=== PATIENT | female | born 1940 | race Caucasian/White ===

== ENCOUNTER → 2017-07-27 | Outpatient (CLI) | payer MEDICARE ==
[~2017-07-27] MED LIST: ATEN-1 PO; ATEN-65 PO; ATOR10TA65 PO; CALC-852 PO; CHOL400C PO; DICL100G39 TOP; GABA-1 PO; LOSA50TA72 PO; MAGN400T4 PO; MULT-885 PO; OMEG-11 PO; VALS160T2 PO; [UNRECOGNIZED DRUG - OTHER] PO
[2017-07-27 12:28] LABS: LDL CHOLESTEROL 49 mg/dl
== END ==
LOC: LAB 11:41
PROVIDERS: ATTEND Internal Medicine
DX: I10 Essential (primary) hypertension (principal); E78.00 Pure hypercholesterolemia, unspecified
CPT/HCPCS: 36415; 82040; 82247; 82310; 82374; 82435; 82465; 82565; 82947; 83718; 84075; 84132; 84155; 84295; 84450; 84460; 84478; 84520

== ENCOUNTER → 2017-07-28 | Outpatient (CLI) | payer MEDICARE ==
[~2017-07-28] MED LIST changes: -VALS160T2 PO; +VALS160T7 PO
== END ==
LOC: LAB 14:10
PROVIDERS: ATTEND Internal Medicine
DX: R94.5 Abnormal results of liver function studies (principal)
CPT/HCPCS: 36415; 82728; 83540; 83550; 84466; 87340

== ENCOUNTER → 2017-08-01 | Outpatient (CLI) | payer MEDICARE ==
--- NOTE | 2017-08-01 13:09 | RADIOLOGY IMAGING REPORT ---
FACILITY: [facility] PATIENT NAME: Ngoc Yepez : 1940 MR: [id number] V: [id number] EXAM DATE: ORDERING PHYSICIAN: SUKHDEEP SUAZO TECHNOLOGIST: Location: [facility] Patient: Ngoc Yepez : 1940 Visit/Account:[id number] Date of Sevice: 08/01/2017 Right upper quadrant ultrasound HISTORY: elevated liver enzymes COMPARISON: None. FINDINGS: Gallbladder: Negative.. Bile ducts: There is no biliary ductal dilation with the CBD measuring 5 mm. Liver: Slightly echogenic. Normal size measuring 14.5 cm in length. Pancreas: Negative. Right kidney: Negative. Upper abdominal aorta and IVC: Patent. Ascites: None visualized. Other findings: None significant IMPRESSION: 1. Negative for gallstones or biliary ductal dilatation. 2. Mildly echogenic liver, likely from steatosis. Report Dictated By: Dave Martini MD at 08/01/2017 1:02 PM Report E-Signed By: Dave Martini MD at 08/01/2017 1:06 PM WSN:[email or web address]
== END ==
LOC: US 01:27
PROVIDERS: ATTEND Internal Medicine
DX: R79.89 Other specified abnormal findings of blood chemistry (principal)
CPT/HCPCS: 76705

== ENCOUNTER 2017-10-06 12:24 | Outpatient (RCR) | payer MEDICARE ==
[2017-09-08 14:07] VITALS: BP 150/75
[2017-09-08 15:20] LABS: PLATELET COUNT, AUTOMATED 144 K/uL (150-450)
--- NOTE | 2017-09-10 16:42 | ONCOLOGY CONSULTATION ---
EVENT DATE: September 08, 2017 REFERRING PHYSICIAN Conrad Orr MD REASON FOR CONSULTATION Evaluation and management of iron overload. HEMATOLOGY HISTORY Patient is a 77-year-old female followed by Dr. Orr. 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 She has also ectropion with multiple surgeries in her eyes in the past, with osteoarthritis and hypertension. Patient was found to have high iron studies lately. Her serum iron was 294 which is high, TIBC was low at 249. Serum ferritin was 1000 and transferring was 223. Patient was checked for hepatitis serology which was negative. Patient was sent for further evaluation and management. PAST MEDICAL HISTORY 1. Neuropathy. 2. Ectropion of the eyes. 3. Hypertension. 4. Osteoarthritis. PAST SURGICAL HISTORY 1. In 1982 she had upper and lower blepharoplasty. 2. In 2011 she had left ectropion in August, and right ectropion surgery in December 2011. 3. On October 19, 2013 she had upper and lower blepharoplasty and re-do of ectropion. 4. She had endometrial biopsy, December 17, 2009. 5. Dilatation and curettage January 09, 2010. 6. Breast augmentation mammoplasty on March 01, 1981. 7. Lumbar laminectomy and diskectomy on January 28, 2000. FAMILY HISTORY She has neuropathy in her mother and maternal grandmother. She has a maternal uncle with high iron. SOCIAL HISTORY Patient has had a partner for the last 22 years. She is a retired senior paralegal. She quit smoking 12 years ago after less than one pack a day for over 40 years. She has a glass of wine on a daily basis. Denies any abuse of illicit drugs. CURRENT MEDICATIONS 1. Losartan 50 mg twice daily. 2. Atenolol 50 mg twice daily. ALLERGIES No known drug allergies. REVIEW OF SYSTEMS CONSTITUTIONAL: No appetite or weight change. No fever, chills or sweating. No recent infection. HEENT: Ears: No tinnitus or hearing problem. Nose: She has nasal discharge due to her eye drainage from ectropion. No epistaxis. Throat: No sore throat or mouth ulcers. Eyes: No diplopia or visual changes. RESPIRATORY: She has cough with expectoration also from the ectropion eye drainage. No shortness of breath. No hemoptysis. CARDIOVASCULAR: No chest pain, orthopnea, or paroxysmal nocturnal dyspnea (PND) . No edema. No palpitations. GASTROINTESTINAL: No nausea or vomiting. No diarrhea or constipation. No change in bowel movements. No heartburn or swallowing difficulties. No abdominal pain. No jaundice. No hematemesis, melena or rectal bleeding. GENITOURINARY: No hematuria or dysuria. MUSCULOSKELETAL: No pain in the muscles, joints or bones. NEUROLOGICAL: She has neuropathy in her feet which is thought to be idiopathic. No tingling or numbness in the hands or feet. No headaches or convulsions. HEMATOLOGIC/LYMPHATIC: No bleeding or easy bruising. No weakness or fatigue. No enlarged lymph nodes. SKIN: No skin rash or lumps. PSYCHIATRIC: No anxiety or depression. PHYSICAL EXAMINATION GENERAL: Looks stable. Well-developed, well-nourished, and in no acute distress. VITAL SIGNS: Blood pressure 150/75, pulse 69 per minute, respirations 16 per minute, temperature 96.7, pulse ox 90% on room air. HEENT: Head: Atraumatic. No sinus tenderness to palpation. Eyes: No icterus or conjunctivitis. Mouth and throat: No oral thrush or mucositis. NECK: Supple. No cervical or supraclavicular lymphadenopathy. LUNGS: Clear to auscultation and percussion bilaterally. HEART: Regular rate and rhythm. No gallops, murmurs, clicks or rubs. ABDOMEN: Soft and lax. No tenderness. No hepatosplenomegaly. No masses. EXTREMITIES: No cyanosis, clubbing or edema. LYMPHATICS: No peripheral lymphadenopathy. NEUROLOGICAL: Conscious, alert and oriented times three. No focal motor or sensory deficits. PSYCHIATRIC: Mood and affect appear normal. SKIN: No skin rash, bruise or purpuric eruption. ASSESSMENT 1. Iron overload with serum ferritin 1000 and TIBC low at 249 with high serum iron at 294. Transferrin was 223. Iron overload could be due to hemochromatosis, especially she says her maternal uncle had some sort of high iron. Patient is drinking alcohol on a daily basis, and this even in hemochromatosis carrier where they do not show the disease, they may have iron overload because of that. I am planning to check her CBC, chem panel and iron studies with ferritin, and I am planning also to check the genetic testing for hemochromatosis. Further evaluation and management will depend on the results of those tests. I am planning to see her in a week for further evaluation and management. 2. Idiopathic neuropathy mainly of the feet. 3. Ectropion of the eyes. 4. Hypertension. PLAN 1. CBC. 2. Chem panel. 3. Iron studies with ferritin. 4. Genetics testing for hemochromatosis. 5. Patient to return in one week for further evaluation and management. 6. Patient to contact us for any new concerns or complaints. MARGUERITE
[~2017-10-06] VITALS: Ht 160 cm; Wt 65.0 kg
[2017-10-06 12:39] VITALS: BP 172/77
--- NOTE | 2017-10-07 18:10 | ONCOLOGY FOLLOW UP NOTE ---
EVENT DATE: October 06, 2017 REASON FOR FOLLOWUP Iron overload/H63D heterozygosity. CHIEF COMPLAINT Fatigue, watery eyes. INTERIM HISTORY Ngoc returns to clinic for a follow-up visit today. She was most recently seen by Dr. Chaudhari here in this clinic. She is here for another opinion regarding her iron load. She reports that she has been feeling about the same since our last visit. Her ongoing biggest complaint is for chronic and bothersome eye symptoms, to include tearing. She reports no abdominal pain, changes in bowel habits, shortness of breath, chest pain, or productive cough. She has had no fevers. She has had laboratory studies checked, and she is here to review the results. PAST MEDICAL HISTORY 1. Peripheral neuropathy, as of now idiopathic. 2. History of ectropion of the eyes. 3. Hypertension. 4. Osteoarthritis. PAST SURGICAL HISTORY 1. 1982: Upper and lower blepharoplasty. 2. 2011: Left ectropion in August, and right ectropion surgery in December of 2011. 3. 2013: Upper and lower blepharoplasty and redo of ectropion. 4. 2009: Endometrial biopsy followed by Gurjit in December 2009. 5. 1980: Breast augmentation surgery. 6. 1999: Lumbar laminectomy and diskectomy. CURRENT MEDICATIONS 1. Losartan. 2. Atenolol. SOCIAL HISTORY The patient is a nonsmoker, but does have a history of smoking. She drinks reportedly a glass or two of wine daily. There is no history of illicit drug use. FAMILY HISTORY There is a family history of neuropathy in her mother and maternal grandmother. She also has a maternal uncle with elevated iron levels. ALLERGIES No known drug allergies. VITAL SIGNS Temperature is 97.3, blood pressure 172/77, heart rate is 70, respirations 16, oxygen saturation is 92% on room air. Weight is declined. PHYSICAL EXAMINATION GENERAL: Patient is alert and oriented times three, in no apparent distress sitting in the exam room chair. She is interactive and pleasant. HEENT: Exam reveals tearing and erythema of both eyes. NEUROLOGIC: Exam is grossly nonfocal, and her gait is normal. SKIN: Exam reveals no concerning rash or lesions. EXTREMITIES: Exam reveals no tenderness to palpation or erythema. LABORATORY STUDIES Are reviewed per the [facility] record and outside labs. She is heterozygote for H63D mutation. She has a prior transaminitis, modest leukopenia, modest thrombocytopenia, and macrocytosis. ASSESSMENT AND PLAN Iron overload, daily alcohol use, leukopenia, thrombocytopenia, H63D heterozygosity. I had a good visit with Ngoc today. We spent time reviewing her recent visit with Dr. Chaudhari here in the [facility]. We also moved on to discuss her laboratory results. These are noted above. We discussed the implications of the H63D heterozygosity, and that this tends to be a very common genotype. Usually, this genotype does not lead to clinically significant iron overload. She does seem to drink daily, although she is not particularly clear about how much she is going to be able to quit, upon recommendation that she do so. I have discussed the importance of her abstaining from alcohol entirely, knowing her prior imaging findings showing steatosis, her elevated liver enzymes, and her known iron overload, which could in part be due to her H63D heterozygosity, but also her alcohol intake. We discussed that under usual circumstances with iron overload and no other good reason for it, therapeutic phlebotomy would be instituted. At this point, I am hesitant to have her begin immediately with therapeutic phlebotomy, and I do think it will be her first priority to cut way back on the amount that she is drinking and eventually quit entirely. Hopefully she can do so. I have also asked her to follow up with me in the next two to three months after repeat labs , and hopefully we will see some improvement. The patient had several questions for me today, and I believe I answered all of her questions to her satisfaction. She does understand the implications of ongoing elevated iron, and alcohol intake. I spent a total of 30 minutes of time face to face with the patient today, and 25 minutes of this was spent in direct counseling and coordination of care. MARGUERITE
== END 2017-10-14 08:43 | disposition home or self-care (01) ==
LOC: ONC 12:24
PROVIDERS: ATTEND Internal Medicine Medical Oncology
DX: E83.119 Hemochromatosis, unspecified (principal); R79.89 Other specified abnormal findings of blood chemistry; D72.819 Decreased white blood cell count, unspecified; D69.6 Thrombocytopenia, unspecified; Z87.891 Personal history of nicotine dependence
CPT/HCPCS: 36415; 82728; 83540; 83550; 85025; G0463; 81256; 82040; 82247; 82310; 82374; 82435; 82565; 82947; 84075; 84132; 84155; 84295; 84450; 84460; 84520; 99202; 99212

== ENCOUNTER → 2018-01-23 | Outpatient (CLI) | payer MEDICARE ==
[~2018-01-23] MED LIST changes: +CEPH500C24 PO; -VALS160T7 PO; +VALS160T8 PO
== END ==
LOC: LAB 14:52
PROVIDERS: ATTEND Surgery
DX: C44.622 Squamous cell carcinoma of skin of right upper limb, including shoulder (principal)
CPT/HCPCS: 88305

== ENCOUNTER 2018-03-22 10:55 | Outpatient (RCR) | payer MEDICARE ==
[2017-12-30 13:28] VITALS: BP 119/51
[2017-12-30 13:44] LABS: PLATELET COUNT, AUTOMATED 153 K/uL (150-450)
[2018-01-05 14:01] VITALS: BP 154/75
--- NOTE | 2018-01-05 21:13 | ONCOLOGY FOLLOW UP NOTE ---
EVENT DATE: January 05, 2018 REASON FOR FOLLOWUP Iron overload/H63D heterozygosity. CHIEF COMPLAINT Fatigue, watery eyes. INTERIM HISTORY Ngoc returns to clinic for a follow-up visit today. She reports that in general she has been feeling about the same. She is having a "bad eye day" today. She has had ongoing redness, irritation, and watering of her eyes. She reports no new pain. Her appetite has been fair. She believes her weight has been stable. She denies new abdominal symptoms, and she reports no new urinary symptoms. She reports that she has been drinking very little alcohol, usually only a glass of wine or less per day. She has had follow-up labs drawn, and she is here to review the results. PAST MEDICAL HISTORY 1. Peripheral neuropathy, as of now idiopathic. 2. History of ectropion of the eyes. 3. Hypertension. 4. Osteoarthritis. PAST SURGICAL HISTORY 1. 1982: Upper and lower blepharoplasty. 2. 2011: Left ectropion in August, and right ectropion surgery in December of 2011. 3. 2013: Upper and lower blepharoplasty and redo of ectropion. 4. 2009: Endometrial biopsy followed by [facility] and [facility] in December 2009. 5. 1980: Breast augmentation surgery. 6. 1999: Lumbar laminectomy and diskectomy. CURRENT MEDICATIONS 1. Losartan. 2. Atenolol. SOCIAL HISTORY The patient is a nonsmoker, but does have a history of smoking. She drinks reportedly a glass or two of wine daily. There is no history of illicit drug use. FAMILY HISTORY There is a family history of neuropathy in her mother and maternal grandmother. She also has a maternal uncle with elevated iron levels. ALLERGIES No known drug allergies. REVIEW OF SYSTEMS Otherwise positive for ongoing peripheral neuropathy, but otherwise negative and all systems were reviewed. VITAL SIGNS Temperature is 97.7, blood pressure 154/75, heart rate is 102, respirations 16, oxygen saturation is 93% on room air. PHYSICAL EXAMINATION GENERAL: Patient is alert and oriented times three, in no apparent distress sitting in the exam room chair. HEENT: Exam reveals anicteric sclerae, but injected conjunctivae and lacrimation bilaterally. NEUROLOGIC: Exam is grossly nonfocal, and her gait is normal. EXTREMITIES: Exam reveals some slight edema of the bilateral lower extremities , but no erythema or tenderness to palpation. SKIN: Exam reveals no concerning rash or lesion. LABORATORY STUDIES Reviewed per the [facility] record. ASSESSMENT AND PLAN Iron overload, macrocytosis, transaminitis, hyponatremia. I visited with Ngoc today in followup about her laboratory abnormalities. She again has hyponatremia, her liver function tests remain abnormal, and her ferritin is actually higher than it was before, now over 1999. She remains with a modest macrocytosis, but quantitatively, her white count, hematocrit, and platelet count are relatively normal. We discussed ongoing concern for alcohol intake. The patient insists that she is drinking no more than a half glass or one glass of wine per day. I have taken her at her word today. We discussed again her hemochromatosis testing, and that the H63D mutation is uncommonly associated with clinically significant iron overload. At this point, she does have the possibility of reserve in her hematocrit to consider therapeutic phlebotomy. My concern, however, is that if we move forward with therapeutic phlebotomy with aggressive parameters, she potentially will become more anemic, and we will have less of a chance of improving her iron status if alcohol intake continues, even modestly. We discussed this. We also touched on the possibility of iron chelation, but certainly, GI toxicity is a concern. I have entered orders for a therapeutic phlebotomy (one-half unit to be performed every two to three weeks as needed for a hematocrit greater than 40%). There is a chance that she may not meet these parameters. I will plan to see her back in the next few months after repeat labs. MARGUERITE
[2018-01-26 11:35] LABS: PLATELET COUNT, AUTOMATED 156 K/uL (150-450)
[2018-01-26 16:13] VITALS: BP 110/69
[2018-03-09 10:59] VITALS: BP 142/65
[2018-03-09 11:17] LABS: PLATELET COUNT, AUTOMATED 164 K/uL (150-450)
[2018-03-14 11:08] VITALS: BP 168/84
[2018-03-14 11:35] LABS: PLATELET COUNT, AUTOMATED 162 K/uL (150-450)
[2018-03-14 12:24] VITALS: BP 154/105
[~2018-03-22 10:55] MED LIST changes: -LOSA50TA72 PO; +LOSA50TA74 PO
[2018-03-22 11:00] VITALS: BP 157/72
--- NOTE | 2018-03-22 15:04 | ONCOLOGY FOLLOW UP NOTE ---
EVENT DATE: March 22, 2018 REASON FOR FOLLOWUP Iron overload/H63D heterozygosity CHIEF COMPLAINT Fatigue. INTERIM HISTORY Ngoc returns to clinic for a followup visit today. She reports that in general she has been feeling about the same. She continues to have problems with her eyes watering almost constantly. She reports no new pain. She denies fever. Her appetite is good, and her weight has been stable. She reports no abnormal bleeding or bruising. She relates that her first therapeutic phlebotomy session went much, much better than she had anticipated, and she actually felt a little bit better in the several days that followed. PAST MEDICAL HISTORY 1. Peripheral neuropathy, as of now idiopathic. 2. History of ectropion of the eyes. 3. Hypertension. 4. Osteoarthritis. PAST SURGICAL HISTORY 1. 1982: Upper and lower blepharoplasty. 2. 2011: Left ectropion in August, and right ectropion surgery in December of 2011. 3. 2013: Upper and lower blepharoplasty and redo of ectropion. 4. 2009: Endometrial biopsy followed by [facility] and [facility] in December 2009. 5. 1980: Breast augmentation surgery. 6. 1999: Lumbar laminectomy and diskectomy. CURRENT MEDICATIONS 1. Keflex. 2. Losartan. 3. Atenolol. SOCIAL HISTORY The patient is a nonsmoker, but does have a history of smoking. She drinks reportedly a glass or two of wine daily. There is no history of illicit drug use. FAMILY HISTORY There is a family history of neuropathy in her mother and maternal grandmother. She also has a maternal uncle with elevated iron levels. ALLERGIES No known drug allergies. REVIEW OF SYSTEMS Otherwise positive for ongoing peripheral neuropathy, but otherwise negative, and all systems were reviewed. VITAL SIGNS Temperature is 97, blood pressure 137/72, heart rate is 64, respirations 16, oxygen saturation is 90% on room air. Weight is 64.3 kg. PHYSICAL EXAMINATION GENERAL: Patient is alert and oriented times three, in no apparent distress, sitting in the exam room chair. She is in good spirits and interactive. HEENT: Anicteric sclerae and lacrimation. NEUROLOGIC: Grossly nonfocal, and her gait is normal. EXTREMITIES: No edema, clubbing, or cyanosis. There is no erythema or tenderness to palpation. SKIN: No concerning rash or lesion. LABORATORY STUDIES Reviewed per the [employer] record. ASSESSMENT AND PLAN Iron overload, H63D heterozygosity. I had a good visit with Ngoc today. Symptomatically, she seems to be doing about the same, if not a bit better perhaps. We spent time reviewing her labs. She has had a decrease in her ferritin, and she has tolerated her first therapeutic phlebotomy without difficulty. We discussed our plan moving forward, which will be for her to go for repeat therapeutic phlebotomy every three to four weeks and follow up with me in about six months after repeat labs, to include a CBC, ferritin, and iron panel. MARGUERITE
== END 2018-03-29 ==
LOC: ONC 10:55
PROVIDERS: ATTEND Internal Medicine Medical Oncology
DX: E83.119 Hemochromatosis, unspecified (principal); R79.89 Other specified abnormal findings of blood chemistry; D72.819 Decreased white blood cell count, unspecified; D69.6 Thrombocytopenia, unspecified; Z87.891 Personal history of nicotine dependence; I10 Essential (primary) hypertension; R53.83 Other fatigue
CPT/HCPCS: 36415; 82728; 83540; 83550; 85014; 85025; 99195; G0463; 82040; 82247; 82310; 82374; 82435; 82565; 82947; 84075; 84132; 84155; 84295; 84450; 84460; 84520; 99212

== ENCOUNTER 2018-04-05 07:03 | Outpatient (RCR) | payer MEDICARE ==
[2018-04-05 11:03] VITALS: BP 118/90
[2018-04-05 11:28] LABS: PLATELET COUNT, AUTOMATED 165 K/uL (150-450)
== END 2018-05-17 11:53 | disposition home or self-care (01) ==
LOC: ONC 07:03
PROVIDERS: ATTEND Internal Medicine Medical Oncology
DX: E83.119 Hemochromatosis, unspecified (principal); R79.89 Other specified abnormal findings of blood chemistry
CPT/HCPCS: 36415; 85025

== ENCOUNTER 2018-08-21 11:00 | Outpatient (RCR) | payer MEDICARE ==
[~2018-08-21 11:00] MED LIST changes: -LOSA50TA74 PO; +LOSA50TA80 PO
[2018-08-21 11:19] VITALS: BP 144/55
[2018-08-21 11:29] LABS: PLATELET COUNT, AUTOMATED 200 K/uL (150-450)
== END 2018-11-16 ==
LOC: SPU 11:00
PROVIDERS: ATTEND Internal Medicine Medical Oncology
DX: E83.119 Hemochromatosis, unspecified (principal); R79.89 Other specified abnormal findings of blood chemistry
CPT/HCPCS: 82040; 82247; 82310; 82374; 82435; 82565; 82728; 82947; 83540; 83550; 84075; 84132; 84155; 84295; 84450; 84460; 84520; 85025; 99195